=== PATIENT | female | born 1980 | race Caucasian/White ===

== ENCOUNTER → 2018-06-19 | Outpatient (REF) | payer OTHER ==
[~2018-06-19] MED LIST: IBU800 PO
== END ==
LOC: ZZSENDIN 11:31
PROVIDERS: ATTEND Physician Assistant
DX: O42.90 Premature rupture of membranes, unspecified as to length of time between rupture and onset of labor, unspecified weeks of gestation (principal)
CPT/HCPCS: 84112

== ENCOUNTER 2018-08-01 01:19 | Inpatient (IN) | payer OTHER ==
[~2018-08-01] VITALS: Ht 170.2 cm; Wt 77.1 kg
[~2018-08-01 01:19] MED LIST changes: +ACET-1966 PO; +PREN-127 PO
[2018-08-01] MEDS ORDERED: fentaNYL CITR 100 MCG/2 ML AMP IVP PRN (01:20)
[2018-08-01] MEDS ORDERED: METOCLOPRAMIDE 10 MG/2 ML SDV IVP PRN (01:20)
[2018-08-01] MEDS ORDERED: LIDOCAINE/SOD BICARB 8.4% SYR SC PRN (01:20)
[2018-08-01] MEDS ORDERED: LIDOCAINE 1% LOCAL 300 MG/30ML INJ PRN (01:20)
[2018-08-01] MEDS ORDERED: FAMOTIDINE(*) 20MG/50ML PREMIX 50 ML IVPB PRN (01:20)
[2018-08-01] MEDS ORDERED: LR(*) 1000 ML BAG 1,000 ML IV SCH (01:20)
[2018-08-01] MEDS ORDERED: cefOXitin/DEX(*) 2GM/50ML PREM 50 ML IVPB PRN (01:20)
[2018-08-01] MEDS ORDERED: OXYTOCIN 30 UNIT/D5LR 500 ML 500 ML IV PRN ×2 (01:20→07:40)
[2018-08-01 01:46] VITALS: BP 103/57; Ht 170.2 cm; Wt 77.1 kg
[2018-08-01] MEDS ORDERED: OXYTOCIN 10 UNIT/ML SDV ONE (02:54)
[2018-08-01 03:19] LABS: PLATELET COUNT, AUTOMATED 164 K/uL (150-450)
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
[2018-08-01] MEDS ORDERED: ACETAMINOPHEN 325 MG TAB PO PRN (11:15)
[2018-08-01] MEDS ORDERED: APAP/HYDROCODONE 325/5 TAB PO PRN (11:15)
[2018-08-01] MEDS ORDERED: LANOLIN OINT 7 GM TUBE TP PRN (11:15)
[2018-08-01] MEDS ORDERED: GLYCERIN/WITCH HAZEL LEAF 1 PK TP PRN (11:15)
[2018-08-01] MEDS ORDERED: MAGNESIUM HYDROXIDE* 30ML UDCP PO PRN (11:15)
[2018-08-01] MEDS ORDERED: HYDROCORTISONE 2.5% CR 30GM TB PR PRN (11:15)
--- NOTE | 2018-08-01 11:17 | OB Delivery Note ---
Delivery Note Vaginal Delivery Type: Spont. Vaginal Delivery Delivery Date: Aug 01, 2018 Delivery Time: 10:53 Estimated Gestational Age(wks): 38.1 Sex: Male Apgars: 1 Minute (8), 5 Minute (9) Repair Needed: Laceration, 1st Degree Estimated Blood Loss: 300 Delivery Complications: Laceration Notes: Presented in labor and SROM at 4 cm. Progressed to 7 cm at 0800 and required Pitocin augmentation. 9 cm by 1029 and complete [id number]. Pushing with contraction in dorsal lithotomy position brought baby to RASHMI position and cr owning. Perineum stabilized and delivery over first degree laceration. Placenta spontaneous and intact. Repair with 2-0 Chromic without difficulty. No complications. Safety Fire Boss in Attendence: No Copies to: RHONA PHAN MD ; RHONA PHAN MD Aug 01, 2018 11:17
[2018-08-01] MEDS: IBUPROFEN 800 MG TAB PO SCH ×2 (11:43→19:16)
[2018-08-01] MEDS: BENZOCAINE 20% 60 ML BTL TP PRN (12:37)
[2018-08-01 12:45] VITALS: BP 107/56
[2018-08-01 16:10] VITALS: BP 110/60
[2018-08-01] MEDS ORDERED: LIDOCAINE 1% LOCAL 300 MG/30ML 30 ML ONE (17:18)
[2018-08-01] MEDS: DOCUSATE CALCIUM 240 MG CAP PO SCH (19:16)
[2018-08-01 19:40] VITALS: BP 116/69
[2018-08-02] VITALS: BP 113/79
[2018-08-02 02:45] VITALS: BP 120/56
[2018-08-02] MEDS: IBUPROFEN 800 MG TAB PO SCH ×2 (03:15→12:38)
[2018-08-02 09:10] VITALS: BP 119/68
[2018-08-02] MEDS: DOCUSATE CALCIUM 240 MG CAP PO SCH (09:59)
[2018-08-02] MEDS ORDERED: DIPHTH/TETANUS/ACEL. PERTUSSIS IM ONLY ONE (11:15)
[2018-08-02] MEDS ORDERED: INFLUENZA VIRUS VAC 0.5ML SYR IM ONLY ONE (11:15)
[2018-08-02] MEDS ORDERED: MEASLES,MUMP,RUBELLA VAC 0.5ML SUBQ ONE (11:15)
[2018-08-02] MEDS ORDERED: DOCU-416 PO (12:41)
[2018-08-02] MEDS ORDERED: IBUP800T37 PO (12:41)
--- NOTE | 2018-08-02 12:44 | OB/GYN Discharge Summary ---
Discharge Summary Reason for Hosp/Final Diag: (1) Labor without complication (2) 38 weeks gestation of [place] Vital Signs Vital Signs Date Time Temp Pulse Resp B/P (MAP) Pulse Ox O2 Delivery O2 Flow Rate FiO2 08/02/18 09:10 98.3 83 16 119/68 (85) Room Air 08/01/18 01:46 97 Weight (Pounds): 170 Result Diagram: 08/02/18 0600 Condition: Improved Discharge: Home Home Meds Active Scripts Docusate Sodium (COLACE) 100 Mg Capsule, 100 MG PO BID for constipation, #20 CAPSULE Prov:ESTEPHANIA BANSAL 08/02/18 Ibuprofen (IBUPROFEN) 800 Mg Tablet, 1 TAB PO Q8H, #30 TAB 0 Refills Take with food every 8 hours. Prov:ESTEPHANIA BANSAL 08/02/18 Reported Medications Acetaminophen (TYLENOL) 325 Mg Tablet, 325 MG PO, TAB 07/21/18 Vits W-Ca,Fe,Fa(<1MG) ( VITAMINS) 1 Each Tablet, 1 EACH PO DAILY, TAB 07/21/18 [facility] [phone], Dr. Luciano [phone] Follow up in: 6 wks PP or PO Discharge Diet: As Tolerates Discharge Activity: As Tolerates, Pelvic Rest ESTEPHANIA BANSAL Aug 02, 2018 12:44
[2018-08-02] MEDS: BENZOCAINE 20% 60 ML BTL TP PRN (13:45)
== END 2018-08-02 14:30 | disposition home or self-care (01) | DRG 807 ==
LOC: OB 01:19 → UNDOADMOB 01:19 → INTOOBSV 01:19 → OBSVTOIN 01:19
PROVIDERS: ADMIT Obstetrics & Gynecology; ATTEND Obstetrics & Gynecology
PROC: 10E0XZZ Delivery of Products of Conception, External Approach (ICD-10-PCS; principal; 2018-08-01)
PROC: 0HQ9XZZ Repair Perineum Skin, External Approach (ICD-10-PCS; 2018-08-01)
DX: O36.0130 Maternal care for anti-D [Rh] antibodies, third trimester, not applicable or unspecified (principal); Z37.0 Single live birth; O70.0 First degree perineal laceration during delivery; Z3A.38 38 weeks gestation of pregnancy; Z88.8 Allergy status to other drugs, medicaments and biological substances
CPT/HCPCS: 36415; 84112; 85025; 85027; 86703; 86850; 86900; 86901; J2590; J7120